=== PATIENT | female | born 1955 | race African-American/Black ===

== ENCOUNTER 2018-08-10 16:19 | Inpatient (IN) | payer OTHER ==
[2018-08-10 16:25] VITALS: BMI 38.2
--- NOTE | 2018-08-10 16:32 | PDOC ---
History of Present Illness - General Chief Complaint: Lightheaded Stated Complaint: Blood Sugar Problem History Source: Patient Exam Limitations: No Limitations - History of Present Illness Initial Comments: 08/10/18 16:54 62 yo F with a hx of HTN and DM presents to the emergency department with generalized weakness in the setting of previously diagnosed pneumonia (day 4 of 5 on azithromycin). Per the patient, she has been having ongoing weakness since mid July that has not abated. She states she has intermittent lightheadedness/nausea, SOB with exertion, and poor appetite. Per the patient, she has this "empty hollow feeling" in the epigastric region that has been persistent. Per the patient, she denies the following: fever, chills, ears/nose/ throat pain, 08/10/18 17:08 Past History - Past Medical History Allergies/Adverse Reactions: Allergies Allergy/AdvReac Type Severity Reaction Status Date / Time Iodinated Contrast- Oral and Allergy Unknown Verified 03/11/18 10:40 IV Dye [Iodinated Contrast Media - IV Dye] Home Medications: Ambulatory Orders Losartan/Hydrochlorothiazide [Losartan-Hctz 50-12.5 mg Tab] 1 each PO DAILY Metoprolol Succinate [Toprol Xl -] 50 mg PO DAILY 09/26/15 metFORMIN HCL [Glucophage -] 500 mg PO BID 09/26/15 CVA: No COPD: No DVT: No Diabetes: Yes HTN: Yes Hypercholesterolemia: Yes - Immunization History Immunization Up to Date: Yes - Suicide/Smoking/Psychosocial Hx Smoking Status: No Smoking History: Never smoked Have you smoked in the past 12 months: No Number of Cigarettes Smoked Daily: 0 Information on smoking cessation initiated: No Hx Alcohol Use: No Drug/Substance Use Hx: No Substance Use Type: None *Physical Exam - Vital Signs Last Vital Signs Temp Pulse Resp BP Pulse Ox 98.5 F 114 H 16 144/86 97 08/10/18 16:22 08/10/18 16:22 08/10/18 16:22 08/10/18 16:22 08/10/18 16:22 Moderate Sedation - Procedure Monitoring Vital Signs: Procedure Monitoring Vital Signs Temperature 98.5 F 08/10/18 16:22 Pulse Rate 114 H 08/10/18 16:22 Respiratory Rate 16 08/10/18 16:22 Blood Pressure 144/86 08/10/18 16:22 O2 Sat by Pulse Oximetry (%) 97 08/10/18 16:22 Heart Score/ECG Review - History History: Moderately suspicious - Electrocardiogram EKG: Normal - Age Age: 45-65 - Risk Factors Risk Factors Heart Score: Yes Hx Hypercholesterolemia, Yes Hx Hypertension, Yes Hx Diabetes, Yes Positive family hx of cardiac disease, Yes Hx Obesity Based on the list above the patient has:: >/=3 risk factors or Hx atherosclerotic disease - Troponin Troponin: </= normal limit - Score Heart Score - Total: 4 ED Treatment Course - LABORATORY CBC & Chemistry Diagram: 08/10/18 17:26 08/10/18 17:26 *DC/Admit/Observation/Transfer - Discharge Dispostion Condition at time of disposition: Stable - Referrals Referrals: Amrik Plunkett MD [Primary Care Provider] - - Patient Instructions - Post Discharge Activity
--- NOTE | 2018-08-10 16:52 | PDOC ---
Attending Attestation - HPI HPI: 08/10/18 17:42 The patient is a 62 year old female with a significant past medical history of HTN and DM presents to the emergency department with generalized weakness today. She reports a recent diagnosis of pneumonia and currently on day 4 of 5 of azithromycin. She reports intermittent lightheadedness, nausea, SOB with exertion, and decreased appetite. She denies fever, chills, vomiting, diarrhea, constipation. She denies sick contacts. She denies chest pain, dizziness, palpitations. She denies changes in urination. - Physicial Exam PE: 08/10/18 17:45 GENERAL: Well developed, well nourished. Awake and alert. No acute distress. HEENT: Normocephalic, atraumatic. PERRLA, EOMI. No conjunctival pallor. Sclera are non- icteric. Moist mucous membranes. Oropharynx is clear. NECK: Supple. Full ROM. No JVD. Carotid pulses 2+ and symmetric, without bruits. No thyromegaly. No lymphadenopathy. CARDIOVASCULAR: (+) tachycardic rate. Regular rhythm. No murmurs, rubs, or gallops. Distal pulses are 2+ and symmetric. PULMONARY: No evidence of respiratory distress. Lungs clear to auscultation bilaterally. No wheezing, rales or rhonchi. ABDOMINAL: Soft. Non-tender. Non-distended. No rebound or guarding. No organomegaly. Normoactive bowel sounds. MUSCULOSKELETAL Normal range of motion at all joints. No bony deformities or tenderness. No CVA tenderness. EXTREMITIES: No cyanosis. No clubbing. No edema. No calf tenderness. SKIN: Warm and dry. Normal capillary refill. No rashes. No jaundice. NEUROLOGICAL: Alert, awake, appropriate. Cranial nerves 2-12 intact. Normoreflexic in the upper and lower extremities. Normal speech. Toes are down-going bilaterally. Gait is normal without ataxia. PSYCHIATRIC: Cooperative. Good eye contact. Appropriate mood and affect. - Medical Decision Making 08/10/18 17:45 Documentation prepared by Libra Echeverria, acting as medical referral coordinator for Jeanette Danielle MD <Libra Echeverria - Last Filed: 08/10/18 17:52> - Resident Resident Name: Ben Chun - ED Attending Attestation I have performed the following: I have examined & evaluated the patient, The case was reviewed & discussed with the resident, I agree w/resident's findings & plan, Exceptions are as noted - Medical Decision Making 08/10/18 17:56 obese 62 yo female p/w lightheadedness,exertional dyspnea no chest pain Pertinent exam findings: tachycardia, LE edema,lungs no wheezing diff diag PNA,chf,ACS,dehydration, hypothyroidism cxr ekg,cbc,comp,bnp,trop 08/10/18 20:01 negative troponin ekg tachycardia @ 107 bpm <Jeanette Danielle - Last Filed: 08/10/18 20:03>
[2018-08-10 17:36] LABS: BASO % 1.2 % (0-2.0); HEMATOCRIT 38.9 % (32.4-45.2); HEMOGLOBIN 14.1 GM/dL (10.7-15.3); LYMPH % 42.6 % (8-40); MCH 29.2 pg (25.7-33.7); MCHC 36.3 g/dl (32.0-36.0); MEAN CELL VOLUME 80.5 fl (80-96); MEAN PLT VOLUME 9.5 fl (7.5-11.1); MONO % 10.3 % (3.8-10.2); NEUT % 44.9 % (42.8-82.8); PLATELET COUNT 246 K/MM3 (134-434); RBC 4.83 M/mm3 (3.60-5.2); RDW 14.9 % (11.6-15.6); WHITE BLOOD COUNT 4.1 K/mm3 (4.0-10.0)
[2018-08-10] MEDS ORDERED: ALBUTEROL SO4 2.5/IPRATROPIUM 0.5 INH SOL 3 ML VIAL.NEB. NEB ONE ×3 (17:44→19:28)
[2018-08-10] MEDS ORDERED: SODIUM CHLORIDE 1,000 ML IV STA (17:45)
[2018-08-10 18:17] LABS: ALBUMIN 3.7 g/dl (3.4-5.0); ALK PHOS 82 U/L (45-117); ANION GAP 10 MMOL/L (8-16); BILIRUBIN,TOTAL 0.3 mg/dL (0.2-1); BLOOD UREA NITROGEN 12 mg/dL (7-18); CALCIUM 8.3 mg/dL (8.5-10.1); CHLORIDE 102 mmol/L (98-107); CO2 28 mmol/L (21-32); CREATININE 0.8 mg/dL (0.55-1.3); GLUCOSE,RANDOM 152 mg/dL (74-106); LIPASE 170 U/L (73-393); N-TERMINAL BNP < 5.0 pg/ml (5-125); POTASSIUM 3.8 mmol/L (3.5-5.1); SGOT/AST 22 U/L (15-37); SGPT/ALT 24 U/L (13-61); SODIUM 140 mmol/L (136-145); TOT PROT 6.9 g/dl (6.4-8.2)
[2018-08-10 18:31] LABS: URINE APPEARANCE CLOUDY; URINE BILIRUBIN NEGATIVE (<2.0 mg/dL); URINE GLUCOSE (UA) 3+ (NEGATIVE); URINE KETONE 1+ (NEGATIVE); URINE LEUK ESTERASE NEGATIVE (NEGATIVE); URINE NITRITE NEGATIVE (NEGATIVE); URINE PROTEIN NEGATIVE (NEGATIVE); URINE UROBILINOGEN NEGATIVE mg/dL (0.2-1.0)
[2018-08-10 18:32] LABS: URINE COLOR YELLOW
[2018-08-10] MEDS ORDERED: predniSONE 20 MG TABLET (UD) PO ONE (19:14)
[2018-08-10] MEDS ORDERED: predniSONE 20 MG TABLET (UD) ONE (19:28)
[2018-08-10] MEDS: ALBUTEROL SO4 2.5/IPRATROPIUM 0.5 INH SOL 3 ML VIAL.NEB. NEB SCH ×3 (19:34→20:47)
[2018-08-11] MEDS ORDERED: ALBUTEROL SO4 2.5/IPRATROPIUM 0.5 INH SOL 3 ML VIAL.NEB. NEB PRN (02:02)
[2018-08-11 05:45] LABS: BASO % 0.7 % (0-2.0); HEMATOCRIT 42.9 % (32.4-45.2); HEMOGLOBIN 14.3 GM/dL (10.7-15.3); LYMPH % 25.2 % (8-40); MCH 27.4 pg (25.7-33.7); MCHC 33.4 g/dl (32.0-36.0); MEAN CELL VOLUME 81.9 fl (80-96); MEAN PLT VOLUME 9.4 fl (7.5-11.1); MONO % 2.7 % (3.8-10.2); NEUT % 71.4 % (42.8-82.8); PLATELET COUNT 262 K/MM3 (134-434); RBC 5.25 M/mm3 (3.60-5.2); WHITE BLOOD COUNT 5.3 K/mm3 (4.0-10.0)
[2018-08-11] MEDS ORDERED: metFORMIN HCL 500 MG TABLET (FP) ONE (06:08)
[2018-08-11] MEDS: metFORMIN HCL 500 MG TABLET (FP) PO SCH ×2 (06:15→16:44)
[2018-08-11 06:18] LABS: ALK PHOS 91 U/L (45-117); ANION GAP 12 MMOL/L (8-16); BILIRUBIN,TOTAL 0.3 mg/dL (0.2-1); BLOOD UREA NITROGEN 13 mg/dL (7-18); CALCIUM 8.6 mg/dL (8.5-10.1); CHLORIDE 105 mmol/L (98-107); CO2 23 mmol/L (21-32); CREATININE 0.9 mg/dL (0.55-1.3); GLUCOSE,RANDOM 171 mg/dL (74-106); POTASSIUM 4.2 mmol/L (3.5-5.1); SGOT/AST 23 U/L (15-37); SGPT/ALT 26 U/L (13-61); SODIUM 140 mmol/L (136-145); TOT PROT 7.6 g/dl (6.4-8.2)
--- NOTE | 2018-08-11 08:42 | CON.CARD ---
Cardiology Consult (text) - Consultation Consultation Note: Consult Dictated IMP: DM Generalized fatigue, AMANDA REC: 1. Echo 2. 3rd cardiac enzyme 3. Plan for nuclear stress to r/o ischemia 4. Pulmonary evaluation Will follow
[2018-08-11] MEDS ORDERED: REGADENOSON 0.4 MG/5 ML PRE-FILLED SYRINGE IVPUSH ONE ×2 (09:15→10:19)
--- NOTE | 2018-08-11 09:22 | CONS ---
DATE OF CONSULTATION: 08/11/2018 CARDIOLOGY CONSULTATION REQUESTING PHYSICIAN: Pauline Otto MD REASON FOR CONSULTATION: Evaluation of dyspnea on exertion and generalized fatigue. HISTORY OF PRESENT ILLNESS: The patient is a 62-year-old female with a past medical history of hypertension, diabetes and hyperlipidemia, who presents to the emergency department for the evaluation of 2 weeks of generalized weakness and exertional fatigue. She was recently diagnosed with bronchitis or pneumonia by her PMD, and treated with a 5-day course of outpatient antibiotics. According to the patient, she continues to have exertional dyspnea and exertional fatigue, along with a dry cough. She does not have fever or chills at this time. She has a lack of exercise capacity, which has changed over the last month. She denies palpitations, PND or orthopnea. No nausea, vomiting or diaphoresis. No edema or weight gain. PAST MEDICAL HISTORY: As above. ALLERGIES: IODINATED CONTRAST. CURRENT MEDICATIONS: Include albuterol via nebulizer p.r.n., Hyzaar, subcutaneous heparin b.i.d., Levaquin 500 mg daily, metformin 500 mg p.o. b.i.d., Solu-Medrol 40 mg IV q.8, Toprol XL 50 mg p.o. daily. FAMILY HISTORY: Negative for early coronary disease or sudden cardiac . SOCIAL HISTORY: Nonsmoker. PHYSICAL EXAMINATION: Vital Signs: Afebrile, temperature 98.1. Pulse 92 to 115. Blood pressure 142 to 150 over 80s. O2 saturation is 100% on room air. HEENT: She is anicteric. Neck: There is no elevation of jugular venous pressure. Heart: Regular, without murmurs, rubs or gallops. Chest: Clear, without active wheezing. Abdomen: Soft. Extremities: No edema. DIAGNOSTIC STUDIES: EKG showed sinus with left axis, no acute ST changes. Chest x-ray was without infiltrates. CBC was normal. Basic metabolic panel was normal. TSH normal. Urinalysis showed 3+ glucose and 1+ ketones. She has been mildly tachycardic but otherwise no significant arrhythmias. IMPRESSION: 1. Diabetes. 2. Generalized fatigue and dyspnea on exertion in the setting of recent bronchitis. RECOMMENDATIONS: 1. Echocardiogram to evaluate LV function, pulmonary pressure and valvular disease. 2. Third cardiac enzyme. 3. Plan for nuclear stress test to rule out ischemia. 4. Pulmonary evaluation is pending. Thank you for the consultation. Renetta [id number]
--- NOTE | 2018-08-11 09:45 | EKG ---
Test Reason : Blood Pressure : / mmHG Vent. Rate : 107 BPM Atrial Rate : 107 BPM P-R Int : 144 ms QRS Dur : 094 ms QT Int : 346 ms P-R-T Axes : 055 -30 044 degrees QTc Int : 461 ms SINUS TACHYCARDIA LEFT AXIS DEVIATION ABNORMAL ECG WHEN COMPARED WITH ECG OF 26-SEP-2015 11:42, NO SIGNIFICANT CHANGE WAS FOUND Confirmed by HUE ZIMMER MD ([id number]) on 08/11/2018 9:45:26 AM Referred By: Confirmed By:HUE ZIMMER MD
[2018-08-11] MEDS: LOSARTAN 50MG/HCTZ 12.5MG 1 TAB (FP) PO SCH (10:37)
[2018-08-11] MEDS ORDERED: HEPARIN NA (PORCINE) 5,000 UNITS/ML 1ML VIAL ONE (13:08)
[2018-08-11] MEDS ORDERED: methylPREDNISolone NA SUCC 40 MG/1 ML VIAL ONE (13:08)
[2018-08-11] MEDS: methylPREDNISolone NA SUCC 40 MG/1 ML VIAL IVPUSH SCH ×2 (13:09→17:04)
[2018-08-11] MEDS: HEPARIN NA (PORCINE) 5,000 UNITS/ML 1ML VIAL SQ SCH ×2 (13:09→21:59)
--- NOTE | 2018-08-11 14:15 | ECHO ---
Name: COSTA GRACE Exam:Adult Echocardiogram Study Date: 08/11/2018 11:28 AM Age: 62 yrs Reason For Study: DYSPNEA Height: 65 in Weight: 230 lb BSA: 2.1 m2 MMode/2D Measurements & Calculations IVSd: 1.4 cm Ao root diam: 2.9 cm LVIDd: 4.2 cm LA dimension: 2.6 cm LVIDs: 2.9 cm LVPWd: 0.93 cm EDV(Teich): 79.2 ml ESV(Teich): 32.7 ml Doppler Measurements & Calculations MV E max tyree: 54.3 cm/sec Med Peak E' Tyree: 5.8 cm/sec MV A max tyree: 82.9 cm/sec Med E/e': 9.4 MV E/A: 0.65 Lat Peak E' Tyree: 7.8 cm/sec MV dec time: 0.10 sec Lat E/e': 6.9 Procedure A two-dimensional transthoracic echocardiogram with color flow and Doppler was performed. Left Ventricle There is moderate concentric left ventricular hypertrophy. The left ventricular ejection fraction is normal. E/A reversal consistent with but not diagnostic of poor LV compliance. The left ventricular wall abby on is normal. Right Ventricle The right ventricle is normal in size and function. Atria Normal left and right atrial size and function. Mitral Valve There is mild mitral valve thickening. There is no mitral valve stenosis. There is trace to mild mitr al regurgitation. Tricuspid Valve There is mild tricuspid valve thickening. There is no tricuspid stenosis. There was insufficient TR d etected to calculate RV systolic pressure. Aortic Valve The aortic valve is trileaflet. There is mild aortic valve thickening. No hemodynamically significant valvular aortic stenosis. No aortic regurgitation is present. Pulmonic Valve The pulmonic valve is not well visualized. Great Vessels The aortic root is normal size. Pericardium/Pleura There is no pericardial effusion. Interpretation Summary There is moderate concentric left ventricular hypertrophy. The left ventricular ejection fraction is normal. The left ventricular wall motion is normal. E/A reversal consistent with but not diagnostic of poor LV compliance There is trace to mild mitral regurgitation. There was insufficient TR detected to calculate RV systolic pressure. MD Clayton Underwood 08/11/2018 02:15 PM
--- NOTE | 2018-08-11 15:27 | HP ---
Admitting History and Physical - Smoking History Smoking history: Never smoked Have you smoked in the past 12 months: No Aproximately how many cigarettes per day: 0 - Alcohol/Substance Use Hx Alcohol Use: No Home Medications - Allergies Allergies/Adverse Reactions: Allergies Allergy/AdvReac Type Severity Reaction Status Date / Time Iodinated Contrast- Oral and Allergy Unknown Verified 03/11/18 10:40 IV Dye [Iodinated Contrast Media - IV Dye] - Home Medications Home Medications: Ambulatory Orders Losartan/Hydrochlorothiazide [Losartan-Hctz 50-12.5 mg Tab] 1 each PO DAILY Metoprolol Succinate [Toprol Xl -] 50 mg PO DAILY 09/26/15 metFORMIN HCL [Glucophage -] 500 mg PO BID 09/26/15 Physical Examination Vital Signs: Vital Signs Temperature 98.2 F 08/11/18 14:22 Pulse Rate 85 08/11/18 14:22 Respiratory Rate 18 08/11/18 15:08 Blood Pressure 132/72 08/11/18 14:22 O2 Sat by Pulse Oximetry (%) 97 08/11/18 15:08 Labs: CBC, BMP 08/11/18 05:20 08/11/18 05:20
[2018-08-11] MEDS: PANTOPRAZOLE 40 MG TABLET (FP) PO SCH (16:44)
[2018-08-11] MEDS: ASPIRIN 81 MG CHEWABLE TABLETS PO SCH (16:44)
[2018-08-12] MEDS: methylPREDNISolone NA SUCC 40 MG/1 ML VIAL IVPUSH SCH ×3 (01:39→17:01)
[2018-08-12] MEDS: metFORMIN HCL 500 MG TABLET (FP) PO SCH ×2 (06:05→17:01)
[2018-08-12] MEDS ORDERED: INSULIN (LEVEMIR) 100 UNITS/ML UNITS SQ ONE (08:37)
--- NOTE | 2018-08-12 08:56 | PN ---
Progress Note, Physician - Current Medication List Current Medications: Active Medications Albuterol/Ipratropium (Duoneb -) 1 amp NEB Q6H PRN PRN Reason: SHORTNESS OF BREATH Aspirin (Asa -) 81 mg PO DAILY [facility] Last Admin: 08/11/18 16:44 Dose: 81 mg HCTZ/Losartan Potassium (Hyzaar -) 1 tab PO DAILY [facility] Last Admin: 08/11/18 10:37 Dose: Not Given Heparin Sodium (Porcine) (Heparin -) 5,000 unit SQ BID [facility] Last Admin: 08/11/18 21:59 Dose: 5,000 unit Levofloxacin (Levaquin 500 Mg Premixed Ivpb -) 500 mg in 100 mls @ 100 mls/hr IVPB DAILY [facility]; Protocol Last Admin: 08/11/18 06:15 Dose: 100 mls/hr Metformin HCl (Glucophage -) 500 mg PO BIDAC [facility] Last Admin: 08/12/18 06:05 Dose: 500 mg Methylprednisolone Sodium Succinate (Solu-Medrol -) 40 mg IVPUSH Q8H-IV [facility] Last Admin: 08/12/18 01:39 Dose: 40 mg Metoprolol Succinate (Toprol Xl -) 50 mg PO DAILY [facility] Last Admin: 08/11/18 10:37 Dose: Not Given Pantoprazole Sodium (Protonix -) 40 mg PO DAILY [facility] Last Admin: 08/11/18 16:44 Dose: 40 mg - Objective Vital Signs: Vital Signs Temperature 97 F L 08/12/18 08:39 Pulse Rate 110 H 08/12/18 08:39 Respiratory Rate 18 08/12/18 08:39 Blood Pressure 139/90 08/12/18 08:39 O2 Sat by Pulse Oximetry (%) 98 08/11/18 19:00 Labs: CBC, BMP 08/11/18 05:20 08/11/18 05:20
--- NOTE | 2018-08-12 09:01 | PN ---
Progress Note, Physician Chief Complaint: Seen and examined on tele No distress O2 Sat is 91% on room air I personally reviewed her stress test and it shows a mild lateral wall defect- however, the images are technically difficult to interpret due to the presence of gut artifact. - Current Medication List Current Medications: Active Medications Albuterol/Ipratropium (Duoneb -) 1 amp NEB Q6H PRN PRN Reason: SHORTNESS OF BREATH Aspirin (Asa -) 81 mg PO DAILY [facility] Last Admin: 08/11/18 16:44 Dose: 81 mg HCTZ/Losartan Potassium (Hyzaar -) 1 tab PO DAILY [facility] Last Admin: 08/11/18 10:37 Dose: Not Given Heparin Sodium (Porcine) (Heparin -) 5,000 unit SQ BID [facility] Last Admin: 08/11/18 21:59 Dose: 5,000 unit Levofloxacin (Levaquin 500 Mg Premixed Ivpb -) 500 mg in 100 mls @ 100 mls/hr IVPB DAILY [facility]; Protocol Last Admin: 08/11/18 06:15 Dose: 100 mls/hr Metformin HCl (Glucophage -) 500 mg PO BIDAC [facility] Last Admin: 08/12/18 06:05 Dose: 500 mg Methylprednisolone Sodium Succinate (Solu-Medrol -) 40 mg IVPUSH Q8H-IV [facility] Last Admin: 08/12/18 01:39 Dose: 40 mg Metoprolol Succinate (Toprol Xl -) 50 mg PO DAILY [facility] Last Admin: 08/11/18 10:37 Dose: Not Given Pantoprazole Sodium (Protonix -) 40 mg PO DAILY [facility] Last Admin: 08/11/18 16:44 Dose: 40 mg - Objective Vital Signs: Vital Signs Temperature 97 F L 08/12/18 08:39 Pulse Rate 110 H 08/12/18 08:39 Respiratory Rate 18 08/12/18 08:39 Blood Pressure 139/90 08/12/18 08:39 O2 Sat by Pulse Oximetry (%) 98 08/11/18 19:00 Constitutional: Yes: No Distress Eyes: Yes: Conjunctiva Clear Cardiovascular: Yes: Regular Rate and Rhythm Respiratory: Yes: Other (clear, no rales or active wheezing) Gastrointestinal: Yes: Soft (NT) Edema: No Neurological: Yes: Alert, Oriented ...Motor Strength: WNL Labs: CBC, BMP 08/11/18 05:20 08/11/18 05:20 - ....Imaging EKG: Image Reviewed (NSR) Assessment/Plan IMP: DM Generalized fatigue, AMANDA REC: The stress defect in the lateral wall is mild; the inferior wall is difficult to interpret based on gut artifact. Continue ASA Await pulmonary evaluation today and will discuss w/ Dr. Rowan re further Rx. Will follow
[2018-08-12] MEDS: ASPIRIN 81 MG CHEWABLE TABLETS PO SCH (09:33)
[2018-08-12] MEDS: PANTOPRAZOLE 40 MG TABLET (FP) PO SCH (09:33)
[2018-08-12] MEDS: HEPARIN NA (PORCINE) 5,000 UNITS/ML 1ML VIAL SQ SCH ×2 (09:33→21:12)
[2018-08-12] MEDS: LOSARTAN 50MG/HCTZ 12.5MG 1 TAB (FP) PO SCH (09:34)
--- NOTE | 2018-08-12 15:46 | CON.PULM ---
Consult Consult Specialty:: PULMONARY Referred by:: Dr. Otto Reason for Consultation:: shortness of breath - History of Present Illness Chief Complaint: dizziness History of Present Illness: 62yo female with h/o HTN, DM who was admitted with generalized weakness x 1 month. States she was diagnosed with pneumonia as outpt and started on azithromycin course. Reports subjective fevers and chills. Has been experiencing dyspnea on exertion for the past year. No specific chest pain or palpitations. +nonproductive cough and occasional wheezing. 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 No pets at home. No leg swelling but with 2 pillow orthopnea. She is a loud snorer with frequent night time awakenings. She does not feel rested upon awakening and experiences excessive daytime somnolence. She had a sleep study as an outpt which was reportedly positive for sleep apnea. - History Source History Provided By: Patient, Medical Record Limitations to Obtaining History: No Limitations - Past Medical History Cardio/Vascular: Yes: HTN Endocrine: Yes: Diabetes Mellitus - Alcohol/Substance Use Hx Alcohol Use: No - Smoking History Smoking history: Never smoked Have you smoked in the past 12 months: No Aproximately how many cigarettes per day: 0 Home Medications - Allergies Allergies/Adverse Reactions: Allergies Allergy/AdvReac Type Severity Reaction Status Date / Time Iodinated Contrast- Oral and Allergy Unknown Verified 03/11/18 10:40 IV Dye [Iodinated Contrast Media - IV Dye] - Home Medications Home Medications: Ambulatory Orders Losartan/Hydrochlorothiazide [Losartan-Hctz 50-12.5 mg Tab] 1 each PO DAILY Metoprolol Succinate [Toprol Xl -] 50 mg PO DAILY 09/26/15 metFORMIN HCL [Glucophage -] 500 mg PO BID 09/26/15 Review of Systems - Review of Systems Constitutional: reports: Fever, Weakness. denies: Chills Eyes: denies: Recent Change in Vision HENT: denies: Nasal Congestion, Throat Pain Neck: denies: Stiffness, Tenderness Cardiovascular: reports: Shortness of Breath. denies: Chest Pain Respiratory: reports: Cough, Wheezing Gastrointestinal: denies: Abdominal Pain, Nausea, Vomiting Genitourinary: denies: Dysuria, Hematuria Neurological: reports: Dizziness. denies: Headache Endocrine: denies: Unexplained Weight Loss Physical Exam Vital Sings: Vital Signs Temperature 98.0 F 08/12/18 14:21 Pulse Rate 84 08/12/18 14:21 Respiratory Rate 16 08/12/18 14:21 Blood Pressure 120/68 08/12/18 14:21 O2 Sat by Pulse Oximetry (%) 92 L 08/12/18 10:00 Constitutional: Yes: Calm Eyes: Yes: Conjunctiva Clear, EOM Intact HENT: Yes: Atraumatic, Normocephalic Neck: Yes: Supple, Trachea Midline Cardiovascular: Yes: Regular Rate and Rhythm Respiratory: Yes: Diminished (decreased breath sounds at the bases) ...Clubbing: No Gastrointestinal: Yes: Normal Bowel Sounds, Soft. No: Tenderness Edema: No Neurological: Yes: Alert, Oriented Labs: CBC, BMP 08/11/18 05:20 08/11/18 05:20 Imaging - Results Chest X-ray: Report Reviewed, Image Reviewed (no infiltrates) Problem List - Problems (1) Dyspnea Code(s): R06.00 - DYSPNEA, UNSPECIFIED (2) Hypertension Code(s): I10 - ESSENTIAL (PRIMARY) HYPERTENSION (3) Diabetes Code(s): E11.9 - TYPE 2 DIABETES MELLITUS WITHOUT COMPLICATIONS (4) Obstructive sleep apnea Code(s): G47.33 - OBSTRUCTIVE SLEEP APNEA (ADULT) (PEDIATRIC) Assessment/Plan Dyspnea on exertion r/o CAD LV Diastolic Dysfunction r/o Mild Asthma HTN DM Suspect Obstructive Sleep Apnea - inhaled bronchodilators as needed - on empiric medrol, can likely d/c - f/u PSG as outpt - beta cresencio - cardiology considering cardiac cath - outpt PFTs - DVT prophylaxis Thank you for this consult Vic Albright MD
[2018-08-12] MEDS ORDERED: PT OWN MED DRAWER 7, Y5N ONE (16:44)
--- NOTE | 2018-08-12 23:16 | PN ---
Progress Note, Physician - Current Medication List Current Medications: Active Medications Albuterol/Ipratropium (Duoneb -) 1 amp NEB Q6H PRN PRN Reason: SHORTNESS OF BREATH Aspirin (Asa -) 81 mg PO DAILY [facility] Last Admin: 08/12/18 09:33 Dose: 81 mg HCTZ/Losartan Potassium (Hyzaar -) 1 tab PO DAILY [facility] Last Admin: 08/12/18 09:34 Dose: 1 tab Heparin Sodium (Porcine) (Heparin -) 5,000 unit SQ BID [facility] Last Admin: 08/12/18 21:12 Dose: 5,000 unit Levofloxacin (Levaquin 500 Mg Premixed Ivpb -) 500 mg in 100 mls @ 100 mls/hr IVPB DAILY [facility]; Protocol Last Admin: 08/12/18 09:33 Dose: 100 mls/hr Metformin HCl (Glucophage -) 500 mg PO BIDAC [facility] Last Admin: 08/12/18 17:01 Dose: 500 mg Methylprednisolone Sodium Succinate (Solu-Medrol -) 40 mg IVPUSH Q8H-IV [facility] Last Admin: 08/12/18 17:01 Dose: 40 mg Metoprolol Succinate (Toprol Xl -) 50 mg PO DAILY [facility] Last Admin: 08/12/18 09:33 Dose: 50 mg Pantoprazole Sodium (Protonix -) 40 mg PO DAILY [facility] Last Admin: 08/12/18 09:33 Dose: 40 mg - Objective Vital Signs: Vital Signs Temperature 98.2 F 08/12/18 20:39 Pulse Rate 84 08/12/18 20:39 Respiratory Rate 18 08/12/18 20:39 Blood Pressure 137/80 08/12/18 20:39 O2 Sat by Pulse Oximetry (%) 92 L 08/12/18 10:00 Labs: CBC, BMP 08/11/18 05:20 08/11/18 05:20
[2018-08-13] MEDS: methylPREDNISolone NA SUCC 40 MG/1 ML VIAL IVPUSH SCH ×2 (01:50→09:19)
[2018-08-13] MEDS: metFORMIN HCL 500 MG TABLET (FP) PO SCH (06:10)
[2018-08-13 07:44] VITALS: BP 141/81; PULSE 91; TEMP 98.5
[2018-08-13 08:04] LABS: CHOLESTEROL 176 mg/dL (50-200); HDL CHOLESTEROL 40 mg/dL (40-60); TRIGLYCERIDES 151 mg/dL (0-150)
--- NOTE | 2018-08-13 08:42 | PN ---
Progress Note, Physician Chief Complaint: Discussed w/ pulm: impression is GUERA and mild possible chronic asthma Dr. Albright favors cath to fully assess for presence of CAD Patient ambulated, felt extreme fatigue and dyspneic - Current Medication List Current Medications: Active Medications Albuterol/Ipratropium (Duoneb -) 1 amp NEB Q6H PRN PRN Reason: SHORTNESS OF BREATH Aspirin (Asa -) 81 mg PO DAILY [facility] Last Admin: 08/12/18 09:33 Dose: 81 mg HCTZ/Losartan Potassium (Hyzaar -) 1 tab PO DAILY [facility] Last Admin: 08/12/18 09:34 Dose: 1 tab Heparin Sodium (Porcine) (Heparin -) 5,000 unit SQ BID [facility] Last Admin: 08/12/18 21:12 Dose: 5,000 unit Levofloxacin (Levaquin 500 Mg Premixed Ivpb -) 500 mg in 100 mls @ 100 mls/hr IVPB DAILY [facility]; Protocol Last Admin: 08/12/18 09:33 Dose: 100 mls/hr Metformin HCl (Glucophage -) 500 mg PO BIDAC [facility] Last Admin: 08/13/18 06:10 Dose: 500 mg Methylprednisolone Sodium Succinate (Solu-Medrol -) 40 mg IVPUSH Q8H-IV [facility] Last Admin: 08/13/18 01:50 Dose: 40 mg Metoprolol Succinate (Toprol Xl -) 50 mg PO DAILY [facility] Last Admin: 08/12/18 09:33 Dose: 50 mg Pantoprazole Sodium (Protonix -) 40 mg PO DAILY [facility] Last Admin: 08/12/18 09:33 Dose: 40 mg - Objective Vital Signs: Vital Signs Temperature 98.5 F 08/13/18 07:44 Pulse Rate 91 H 08/13/18 07:44 Respiratory Rate 18 08/13/18 07:44 Blood Pressure 141/81 08/13/18 07:44 O2 Sat by Pulse Oximetry (%) 92 L 08/12/18 10:00 Constitutional: Yes: Calm Cardiovascular: Yes: Regular Rate and Rhythm Respiratory: Yes: CTA Bilaterally (no rales or wheezing) Gastrointestinal: Yes: Soft Edema: No Neurological: Yes: Alert, Oriented Labs: CBC, BMP 08/11/18 05:20 08/11/18 05:20 - ....Imaging EKG: Image Reviewed (TELE: Sinus) Assessment/Plan IMP: DM Generalized fatigue, AMANDA: new onset angina REC: Have discussed abnormal stress findings with patient and daughter Blanca at length. Treatment and further diagnostic options including medical Rx alone; medical Rx w/ cath for definitive assessment and or Cor CTA were reviewed. Risks/benefits of all approaches reviewed. Patient continues to have exertional sx and thus she has opted for LHC for definitive assessment. Will Hold Metformin and arrange transfer to tertiary center.
[2018-08-13] MEDS: ASPIRIN 81 MG CHEWABLE TABLETS PO SCH (09:19)
[2018-08-13] MEDS: HEPARIN NA (PORCINE) 5,000 UNITS/ML 1ML VIAL SQ SCH (09:19)
[2018-08-13] MEDS: LOSARTAN 50MG/HCTZ 12.5MG 1 TAB (FP) PO SCH (09:20)
[2018-08-13] MEDS: PANTOPRAZOLE 40 MG TABLET (FP) PO SCH (09:20)
[2018-08-13] MEDS ORDERED: ISOSORBIDE MONONITRATE 30 MG TAB.SR.24H (FP) PO SCH (10:00)
== END 2018-08-13 11:14 | disposition short-term general hospital (02) | DRG 311 ==
LOC: JER 16:19 → JERBED 20:53 → OBSVTOIN 08-11 01:49 → J4S 08-11 13:59
PROVIDERS: ADMIT Internal Medicine; ATTEND Internal Medicine
PROC: 3E0F7GC Introduction of Other Therapeutic Substance into Respiratory Tract, Via Natural or Artificial Opening (ICD-10-PCS; principal; 2018-08-12)
DX: I20.9 Angina pectoris, unspecified (principal); E11.9 Type 2 diabetes mellitus without complications; Z79.84 Long term (current) use of oral hypoglycemic drugs; I10 Essential (primary) hypertension; E78.5 Hyperlipidemia, unspecified; G47.33 Obstructive sleep apnea (adult) (pediatric)
CPT/HCPCS: 36415; 71046-TC-FY; 78452-TC; 80053; 80061; 81003; 82550; 82553; 82962; 83690; 83721; 83880; 84439; 84443; 84484; 85025; 87086; 93005; 93010; 93017; 93306-TC; 99285-25; A9502; C1887; G0378; J1644; J2785; J7030

== ENCOUNTER 2019-10-08 17:07 | Emergency (ER) | payer OTHER ==
[2019-10-08 17:15] VITALS: BP 172/90; PULSE 92; TEMP 97.9; BMI 36.6
--- NOTE | 2019-10-08 17:57 | PDOC ---
History of Present Illness - General Chief Complaint: Pain Stated Complaint: FALL Time Seen by Provider: 10/08/19 17:41 History Source: Patient - History of Present Illness Initial Comments: 10/08/19 18:36 Chief complaint: Leg injury Patient is a 63-year-old female history of hypertension, diabetes, on baby aspirin who was in [place], states the floor was wet, she slipped, banged her leg against something that injured it. Patient fell but denies any head injury, back injury. Patient had no LOC. Patient is ambulatory. Patient is complaining of pain to the lower left leg to the ramey. Patient has no wound. GENERAL/CONSTITUTIONAL: No fever, weakness. dizziness HEAD, EYES, EARS, NOSE AND THROAT: No change in vision. No ear pain or discharge. No sore throat. CARDIOVASCULAR: No chest pain RESPIRATORY: No shortness of breath or cough GASTROINTESTINAL: No pain, nausea, vomiting, diarrhea or constipation GENITOURINARY: No dysuria MUSCULOSKELETAL: No neck or back pain, + left leg SKIN: No rash NEUROLOGIC: No headache, vertigo, loss of consciousness, or loss of sensation. GENERAL: The patient is awake, alert, and fully oriented, in no acute distress. HEAD: Normal with no signs of trauma. EYES: Pupils equal, round and reactive to light, sclera anicteric, conjunctiva clear. ENT: pharynx: no erythema, no exudate, uvula midline NECK: supple CHEST: clear, nontender, rr ABD: soft, nontender BACK: no tenderness or signs of injury EXTREMITIES: Left leg: No deformity, no open wounds, no signs of infection, with minimal bruising to the lower anterior ramey, mild tenderness, exam of the rest of the extremity shows no tenderness, swelling or deformity. Neurovascular intact. Rest of extremities, normal range of motion, no edema. NEUROLOGICAL: Normal speech, cranial nerves II through XII grossly intact, no gross focal abnormalities. Able to ambulate SKIN: Warm, Dry Past History - Past Medical History Allergies/Adverse Reactions: Allergies Allergy/AdvReac Type Severity Reaction Status Date / Time Iodinated Contrast Media Allergy Unknown Verified 10/08/19 17:10 [Iodinated Contrast Media - IV Dye] Home Medications: Ambulatory Orders Losartan/Hydrochlorothiazide [Losartan-Hctz 50-12.5 mg Tab] 1 each PO DAILY Metoprolol Succinate [Toprol Xl -] 50 mg PO DAILY 09/26/15 Empagliflozin [Jardiance] 25 mg PO DAILY 10/08/19 Anemia: No Asthma: Yes Cancer: No Cardiac Disorders: No CVA: No COPD: No CHF: No DVT: No Dementia: No Diabetes: Yes GI Disorders: No Disorders: No HTN: Yes Hypercholesterolemia: Yes Liver Disease: No Seizures: No Thyroid Disease: No - Surgical History Abdominal Surgery: No Appendectomy: No Cardiac Surgery: No Cholecystectomy: No Lung Surgery: No Neurologic Surgery: No Orthopedic Surgery: No - Immunization History Immunization Up to Date: Yes - Psycho Social/Smoking Cessation Hx Smoking Status: No Smoking History: Never smoked Have you smoked in the past 12 months: No Number of Cigarettes Smoked Daily: 0 Hx Alcohol Use: No Drug/Substance Use Hx: No Substance Use Type: None *Physical Exam - Vital Signs Last Vital Signs Temp Pulse Resp BP Pulse Ox 97.9 F 92 H 18 172/90 H 98 10/08/19 17:11 10/08/19 17:11 10/08/19 17:11 10/08/19 17:11 10/08/19 17:11 Medical Decision Making - Medical Decision Making 10/08/19 18:38 63-year-old female who is fell in [place], states the floor was wet, hit the ramey against something. Has pain to the area. No open wounds. Patient is ambulatory, no head injury, no other complaints. On baby aspirin. Patient did not take pain medicine would like some Motrin. Patient will get x- ray to the left leg. Unlikely fracture. X-ray shows no fracture or acute issues Discussed issues, findings, results, applicable medications and treatments and follow-up. All these were understood and all questions were answered Discharge - Discharge Information Problems reviewed: Yes Clinical Impression/Diagnosis: Contusion of leg, left Qualifiers: Encounter type: initial encounter Qualified Code(s): S80.12XA - Contusion of left lower leg, initial encounter Condition: Stable Disposition: HOME - Admission No - Follow up/Referral Referrals: Charanjit Romo MD [Staff Physician] - - Patient Discharge Instructions Patient Printed Discharge Instructions: Contusion Additional Instructions: Elevate, wear splint You can apply ice for 20 minutes every 2 hours for the next 2 days Motrin 400 mg every 6 hours for pain. Call the orthopedist tomorrow - Post Discharge Activity
[2019-10-08] MEDS ORDERED: IBUPROFEN 600 MG TABLET (FP) PO ONE ×2 (18:00→18:01)
== END 2019-10-08 18:43 | disposition home or self-care (01) ==
LOC: JERFT 17:07
DX: S80.12XA Contusion of left lower leg, initial encounter (principal); W01.0XXA Fall on same level from slipping, tripping and stumbling without subsequent striking against object, initial encounter; Y93.89 Activity, other specified; Y92.512 Supermarket, store or market as the place of occurrence of the external cause; Y99.8 Other external cause status; I10 Essential (primary) hypertension; E11.9 Type 2 diabetes mellitus without complications; Z79.84 Long term (current) use of oral hypoglycemic drugs; E78.00 Pure hypercholesterolemia, unspecified; Z91.041 Radiographic dye allergy status
CPT/HCPCS: 73590-TC-LT-FY; 99281-25

== ENCOUNTER 2021-11-20 05:36 | Day surgery (SDC) | payer OTHER ==
[2021-11-19 15:27] VITALS: BMI 35.9
[~2021-11-20 05:36] MED LIST: ACETAMINOPHEN 325 MG TABLET (FP) PO PRN; PHENYLEPHRINE 2.5% OPHTH SOLN 15 ML BOTTLE OP SCH
[2021-11-20] MEDS ORDERED: CHONDROITIN SU A/HYALUR SOD 1 KIT ONE ×2 (07:11→09:19)
[2021-11-20] MEDS ORDERED: LIDOCAINE HCL/PF 1% SDV 5ML VIAL ONE (07:23)
[2021-11-20] MEDS ORDERED: BSS (NA/CA/MG/K) BALANCED SALT SOLUTION OPHTH SOLN 15 ML BOTTLE ONE (07:23)
[2021-11-20] MEDS ORDERED: POVIDONE-IODINE 5% OPHTHALMIC PREP 30 ML SOLUTION ONE (07:23)
[2021-11-20] MEDS ORDERED: TRYPAN BLUE 0.5 ML DISP.SYRIN ONE (07:23)
[2021-11-20] MEDS ORDERED: EPINEPHrine/PF 1 MG/1 ML (1:1,000) AMPULE ONE (07:23)
[2021-11-20] MEDS ORDERED: TETRACAINE 0.5% OPHTH SOLN 2 ML BOTTLE ONE (07:23)
[2021-11-20] MEDS ORDERED: KETOROLAC TROMETHAMINE 0.5% EYE DROP 1 DROP DROPS ONE (07:48)
[2021-11-20] MEDS ORDERED: CYCLOPENTOLATE HCL 1% OPHTH SOLN 2 ML BOTTLE ONE (07:49)
[2021-11-20] MEDS ORDERED: TROPICAMIDE 1% OPHTH SOLN 15 ML BOTTLE ONE (07:49)
[2021-11-20] MEDS ORDERED: OFLOXACIN 0.3% OPHTHALMIC SOLUTION 5 ML BOTTLE ONE (07:49)
[2021-11-20] MEDS: PHENYLEPHRINE 2.5% OPTHALMIC DROP BOTTLE ONE ×3 (08:01→08:11)
[2021-11-20] MEDS: OFLOXACIN 0.3% OPHTHALMIC SOLUTION 5 ML BOTTLE OP SCH ×3 (08:01→08:11)
[2021-11-20] MEDS: KETOROLAC TROMETHAMINE 0.5% EYE DROP 1 DROP DROPS OP SCH ×3 (08:01→08:11)
[2021-11-20] MEDS: CYCLOPENTOLATE HCL 1% OPHTH SOLN 2 ML BOTTLE OP SCH ×3 (08:01→08:11)
[2021-11-20] MEDS: TROPICAMIDE 1% OPHTH SOLN 15 ML BOTTLE OP SCH ×3 (08:01→08:11)
[2021-11-20] MEDS ORDERED: MIDAZOLAM HCL 2 MG/2 ML SINGLE DOSE VIAL ONE (08:52)
[2021-11-20] MEDS ORDERED: TETRACAINE 0.5% OPHTH SOLN 2 ML BOTTLE OS ONE (09:04)
[2021-11-20] MEDS ORDERED: POVIDONE-IODINE 5% OPHTHALMIC PREP 30 ML SOLUTION OS ONE (09:08)
[2021-11-20] MEDS ORDERED: BSS (NA/CA/MG/K) BALANCED SALT SOLUTION OPHTH SOLN 15 ML BOTTLE OS ONE (09:17)
[2021-11-20] MEDS ORDERED: LIDOCAINE HCL 1% PRESERVATIVE FREE - 30ML VIAL IO ONE (09:18)
[2021-11-20] MEDS ORDERED: CHONDROITIN SU A/HYALUR SOD 1 KIT IO ONE (09:19)
[2021-11-20] MEDS ORDERED: EPINEPHrine/PF 1 MG/1 ML (1:1,000) AMPULE SQ ONE (09:24)
[2021-11-20 11:42] VITALS: BP 130/70; PULSE 80; TEMP 97.8
== END 2021-11-20 11:35 | disposition home or self-care (01) ==
LOC: JASU-SURG 05:36
PROVIDERS: ATTEND Ophthalmology
PROC: 08RK3JZ Replacement of Left Lens with Synthetic Substitute, Percutaneous Approach (ICD-10-PCS; principal; 2021-11-20 09:00)
DX: H26.9 Unspecified cataract (principal)
CPT/HCPCS: 82962